=== PATIENT | male | born 1985 | race Caucasian/White ===

== ENCOUNTER 2021-05-23 10:47 | Emergency (ER) | payer BC, SELFPAY ==
[2021-05-23 11:04] VITALS: PULSE 74; RESP 16; TEMP 36.8; O2SAT 100
--- NOTE | 2021-05-23 12:04 | ED.URI ---
HPI - URI/Sore Throat General Chief Complaint: Upper Respiratory Infection Stated Complaint: sore throat Time Seen by Provider: 05/23/21 12:05 Source: patient, RN notes reviewed and old records reviewed Mode of arrival: ambulatory Limitations: no limitations History of Present Illness HPI Narrative: 36-year-old male who presents to [facility] with complaints of sore throat since yesterday with painful swallowing, denies any known fevers, chills, sweats or any associated cough. Patient states that he does have a little nasal drainage,nasal stuffiness but denies any ear pain. Patient has history of past strep throat and has taken some ibuprofen for his symptoms. Patient has had COVID in 2020 and has had vaccinations, no flu vaccine taken. MD elicited complaint: sore throat Related Data Allergies Allergy/AdvReac Type Severity Reaction Status Date / Time No Known Allergies Allergy Unknown Unverified 07/10/14 11:50 Review of Systems Review of Systems: CONSTITUTIONAL: Denies fever, chills, or sweats. EYES: Denies visual changes, redness, or discharge. ENT: Positive for rhinorrhea, congestion, sore throat, no otalgia. CARDIOVASCULAR: Denies chest pain, palpitations, or edema. RESPIRATORY: Denies cough or dyspnea. GASTROINTESTINAL: Denies abdominal pain, nausea, vomiting, or diarrhea. GENITOURINARY: Denies dysuria or hematuria. SKIN: Denies rash or itching. MUSCULOSKELETAL: Denies back pain, joint pain, or myalgia. NEUROLOGIC: Denies headache, numbness, or weakness. PSYCHIATRIC: Denies anxiety or depression. All systems reviewed & are unremarkable except as noted in HPI and below [facility] Past Medical History Medical History (Updated 05/24/21 @ 14:06 by Latanya Foster NP) Asthma Diabetes Environmental allergies Hypertension MRSA bacteremia Strep throat Surgical History Surgical History (Updated 05/24/21 @ 14:04 by Latanya Foster NP) History of placement of ear tubes Social History Social History (Updated 05/24/21 @ 14:07 by Latanya Foster NP) Smoking status: Never smoker Alcohol intake: current Alcohol use details: social Substance use: never Living arrangements: with family Gender identity (if verbalized by the patient): Male Comments At time of signature, agree with nursing past medical, surgical, social and family history. There is no relevant family history pertinent to the presenting complaint Exam Narrative: GENERAL: Well-appearing, well-nourished, obese and in no acute distress. HEAD: Normocephalic, atraumatic. EYES: PERRLA and EOMI. ENT: Nares red with clear rhinorrhea no epistaxis. Mucous membranes moist.TM's normal with good light reflex, throat red with no lesions or exudates, tonsils red and swollen, some post nasal drainage noted NECK: Supple.lymphadenopathy CHEST: Clear to auscultation. No respiratory distress.SAO2 97% on room air HEART: Regular rate and rhythm. No murmur heard. Normal peripheral pulses. ABDOMEN: Soft, nontender, nondistended, normal active bowel sounds. EXTREMITIES: Normal range of motion. No edema. SKIN: Warm, dry, no rash. NEURO: No focal deficits. Alert and oriented x3. Course Course Level of Care: Express Care Visit Vital Signs Vital signs: Vital Signs Temperature 36.8 C 05/23/21 11:04 Pulse Rate 74 05/23/21 11:04 Respiratory Rate 16 05/23/21 11:04 Pulse Oximetry 100 05/23/21 11:04 Temperature 36.8 C 05/23/21 11:04 Pulse Rate 74 05/23/21 11:04 Respiratory Rate 16 05/23/21 11:04 Blood Pressure 160/69 H 05/23/21 12:12 Pulse Oximetry 100 05/23/21 11:04 MDM - URI/Sore Throat Differential Diagnosis Differential diagnosis: Likely upper respiratory infection, sinusitis, pharyngitis (Strep pharyngitis) and other (Tonsillitis) Medical Records Attestation: I reviewed the patient's medical records. Lab Data Attestation: I reviewed the patient's lab results. Lab results narrative: Strep screen negative Labs: Strep
[2021-05-23 12:12] VITALS: BP 160/69
== END 2021-05-23 12:20 | disposition home or self-care (01) ==
PROVIDERS: Emergency Provider Registered Nurse
DX: J03.90 Acute tonsillitis, unspecified (principal); J45.909 Unspecified asthma, uncomplicated; E11.9 Type 2 diabetes mellitus without complications; I10 Essential (primary) hypertension; Z86.14 Personal history of Methicillin resistant Staphylococcus aureus infection
CPT/HCPCS: 87081; 87880; 99203; G0463

== ENCOUNTER 2023-03-15 10:42 | Outpatient (CLI) | payer BC, SELFPAY | END 2023-03-15 10:43 | disposition home or self-care (01) | LOC: ANHAUDIO 10:43 | PROVIDERS: PCP Otolaryngology; Visit Provider Otolaryngology | DX: H65.499 Other chronic nonsuppurative otitis media, unspecified ear (principal); H69.90 Unspecified Eustachian tube disorder, unspecified ear; H70.12 Chronic mastoiditis, left ear; J32.2 Chronic ethmoidal sinusitis; J01.01 Acute recurrent maxillary sinusitis | CPT/HCPCS: 92557; 92567 ==